=== PATIENT | female | born 1960 | race Caucasian/White ===

== ENCOUNTER 2024-01-20 16:09 | Inpatient (IN) | payer BC, OTHER ==
[~2024-01-20] VITALS: Ht 152.4 cm; Wt 72.6 kg
[~2024-01-20 16:09] MED LIST: ASPIRIN81 M1 PO; CALCIUM500 M1 PO; FOLIC ACID1 MG PO; HYDROCODON-ACE1 EAC4 PO; INSULIN PUMP1 EACH; METHOTREXATE2.5 M1 PO; MULTIVITAMINS1 EAC8 PO; QUINAPRIL HCL5 MG PO; REMICADE100 MG/VIA; SALMON NS; TRAVATAN Z5 ML OS; VALACYCLOVIR500 MG PO; VALCYCLOVIR PO; VITAMIN B-1250 MC1 PO; VITAMIN B12 PO
[2024-01-20] MEDS ORDERED: SODIUM CHLORIDE FLUSH 10 ML SYR INJ PRN (17:45)
[2024-01-20 18:14] LABS: BASOPHILS % 0.3 % (0.0-1.0); EOSINOPHILS # (AUTO) 0.1 (0.0-0.4); EOSINOPHILS % 0.4 % (0.0-6.0); HEMATOCRIT 38.8 % (34.2-44.1); HEMOGLOBIN 12.3 g/dL (12.0-16.0); LYMPHOCYTES % 7.5 % (18.0-39.1); MEAN CORPUSCULAR HEMOGLOBIN 33.3 pg (28-32); MEAN CORPUSCULAR HGB CONC 31.7 g/dL (31-35); MEAN CORPUSCULAR VOLUME 105.1 fL (81-99); MONOCYTES # (AUTO) 0.5 (0.2-0.8); MONOCYTES % 3.7 % (4.4-11.3); NEUTROPHILS # (AUTO) 11.5 (2.1-6.9); NEUTROPHILS % 87.6 % (38.7-80.0); PLATELET COUNT 266 x10e3/uL (140-360); RED BLOOD COUNT 3.69 x10e6/uL (3.6-5.1); RED CELL DISTRIBUTION WIDTH 15.3 % (11.7-14.4); WHITE BLOOD COUNT 13.17 x10e3/uL (4.8-10.8)
[2024-01-20 18:27] LABS: ALBUMIN 3.8 g/dL (3.5-5.0); ALBUMIN/GLOBULIN RATIO 0.9 (0.8-2.0); ANION GAP 17.4 mmol/L (8-16); BILIRUBIN,TOTAL 0.7 mg/dL (0.2-1.2); CALCIUM 10.5 mg/dL (8.4-10.2); CREATININE, SERUM 0.85 mg/dL (0.57-1.11); POTASSIUM 4.4 mmol/L (3.5-5.1)
[2024-01-20 19:22] VITALS: PULSE 77; RESP 18; TEMP 98.3
[2024-01-20 20:19] VITALS: BP 155/61; PULSE 82; RESP 20; TEMP 98; O2SAT 100
[2024-01-20 21:00] VITALS: BP 155/61; PULSE 82; RESP 20; TEMP 98; O2SAT 100
[2024-01-20] MEDS: Morphine 4mg INJECTION 4 MG/ML INJ IV PRN (21:17)
[2024-01-20] MEDS ORDERED: PROLIA60 MG/1 ML IM (21:34)
[2024-01-20] MEDS ORDERED: CYMBALTA30 MG PO (21:34)
[2024-01-20] MEDS ORDERED: PRAVASTATIN SOD40 MG PO (21:34)
[2024-01-20 22:18] VITALS: PULSE 75; RESP 16; O2SAT 98
[2024-01-21] VITALS (10 sets, daily range): BP systolic 137–162; BP diastolic 51–71; PULSE 84–97; RESP 16–19; TEMP 98.2–98.6; O2SAT 96–100
[2024-01-21] MEDS: SODIUM CHLORIDE 0.9% 250ML 250 ML ONE (00:21)
[2024-01-21 05:46] LABS: BASOPHILS % 0.2 % (0.0-1.0); EOSINOPHILS # (AUTO) 0.1 (0.0-0.4); EOSINOPHILS % 0.9 % (0.0-6.0); HEMATOCRIT 34.9 % (34.2-44.1); HEMOGLOBIN 11.3 g/dL (12.0-16.0); LYMPHOCYTES # (AUTO) 1.5 (1.0-3.2); LYMPHOCYTES % 15.6 % (18.0-39.1); MEAN CORPUSCULAR HEMOGLOBIN 33.6 pg (28-32); MEAN CORPUSCULAR HGB CONC 32.4 g/dL (31-35); MEAN CORPUSCULAR VOLUME 103.9 fL (81-99); MONOCYTES # (AUTO) 0.7 (0.2-0.8); NEUTROPHILS # (AUTO) 7.3 (2.1-6.9); PLATELET COUNT 252 x10e3/uL (140-360); RED BLOOD COUNT 3.36 x10e6/uL (3.6-5.1); RED CELL DISTRIBUTION WIDTH 15.1 % (11.7-14.4); WHITE BLOOD COUNT 9.59 x10e3/uL (4.8-10.8)
[2024-01-21 06:26] LABS: CALCIUM 8.9 mg/dL (8.4-10.2); CREATININE, SERUM 0.71 mg/dL (0.57-1.11)
[2024-01-21] MEDS: ONDANSETRON HCL INJ 2MG/ML 2ML 2 MG/ML VIAL IV PRN (11:27)
[2024-01-21] MEDS ORDERED: DEXTROSE 50% SYRINGE 50 ML IV PRN (13:30)
[2024-01-21] MEDS: INSULIN LISPRO 100 UNIT/1 ML 3ML VIAL SQ SCH (16:30)
[2024-01-22] VITALS (8 sets, daily range): BP systolic 146–164; BP diastolic 50–79; PULSE 70–101; RESP 17–18; TEMP 97.7–98.6; O2SAT 96–100
[2024-01-22] MEDS: DULOXETINE HCL 30 MG DELAYED RELEASE PO SCH (08:03)
[2024-01-22] MEDS: PRAVASTATIN 20 MG TAB PO SCH (08:03)
[2024-01-23] VITALS: BP 150/60; PULSE 87; RESP 18; TEMP 99.2; O2SAT 100
[2024-01-23 04:00] VITALS: BP 136/56; PULSE 65; RESP 18; TEMP 97.7; O2SAT 99
[2024-01-23 08:11] VITALS: BP 116/58; PULSE 77; RESP 20; O2SAT 100
[2024-01-23 08:27] VITALS: BP 116/58; PULSE 77; RESP 20; TEMP 98.1; O2SAT 100
[2024-01-23 12:38] VITALS: BP 131/59; PULSE 84; RESP 20; TEMP 98.3; O2SAT 100
[2024-01-23 16:25] VITALS: BP 137/69; PULSE 89; RESP 20; TEMP 98.3; O2SAT 98
== END 2024-01-23 17:09 | disposition home or self-care (01) | DRG 603 ==
LOC: ER 17:39 → ERHOLD 17:41 → MED/SURG3 20:21
PROVIDERS: ADMIT Internal Medicine; ATTEND Internal Medicine
DX: L03.113 Cellulitis of right upper limb (principal); L03.011 Cellulitis of right finger; S61.250A Open bite of right index finger without damage to nail, initial encounter; S61.451A Open bite of right hand, initial encounter; W55.01XA Bitten by cat, initial encounter; E11.65 Type 2 diabetes mellitus with hyperglycemia; Z79.4 Long term (current) use of insulin; E78.5 Hyperlipidemia, unspecified; F41.8 Other specified anxiety disorders; M06.9 Rheumatoid arthritis, unspecified; Z11.52 Encounter for screening for COVID-19; Y93.K1 Activity, walking an animal; Y92.830 Public park as the place of occurrence of the external cause; Z79.899 Other long term (current) drug therapy; Z79.82 Long term (current) use of aspirin
CPT/HCPCS: 36415; 80048; 80053; 85025; 87040; 94799; 99252; 99284; J0295; J2270; J2405; J7050; U0002

== ENCOUNTER 2024-03-28 13:45 | Emergency (ER) | payer BC ==
[~2024-03-28] VITALS: Ht 152.4 cm; Wt 74.8 kg
[~2024-03-28 13:45] MED LIST changes: +CYMBALTA30 MG PO; +PRAVASTATIN SOD40 MG PO; +PROLIA60 MG/1 ML IM
[2024-03-28 14:00] VITALS: PULSE 95; RESP 14; TEMP 97.8; O2SAT 100
[2024-03-28] MEDS ORDERED: IBUPROFEN 400 MG TAB PO ONE (14:15)
== END 2024-03-28 17:10 | disposition home or self-care (01) ==
LOC: ER 14:12
DX: R07.89 Other chest pain (principal); S20.212A Contusion of left front wall of thorax, initial encounter; W01.0XXA Fall on same level from slipping, tripping and stumbling without subsequent striking against object, initial encounter; Y93.01 Activity, walking, marching and hiking; Y92.89 Other specified places as the place of occurrence of the external cause; E11.9 Type 2 diabetes mellitus without complications; D64.9 Anemia, unspecified; M06.9 Rheumatoid arthritis, unspecified; F41.9 Anxiety disorder, unspecified; R94.31 Abnormal electrocardiogram [ECG] [EKG]
CPT/HCPCS: 71250; 93005; 99283